=== PATIENT | male | born 1985 | race Caucasian/White ===

== ENCOUNTER 2016-12-27 17:52 | Observation (INO) | payer OTHER ==
--- NOTE | 2016-12-27 18:13 | EDPHY ---
HPI/HX/ROS/PE/MDM Narrative: CHIEF COMPLAINT: Cough, fever, recent travel HISTORY OF PRESENT ILLNESS: This patient is a 31 year old male who returned Wednesday12/25/16 from a one month trip to [facility] and [facility] complaining of cough, shortness of breath, and fever onset 2 days ago. He states he is up to date on all pertinent travel vaccinations and is followed by the travel clinic for the [facility]. He does report having bad reactions to malaria prophylaxis and did not prophylaxis against malaria. He reports he spent most of his time in [facility] and [facility], but that he also visited some surrounding towns with lush and desert climates. He states his initial symptoms were runny nose and congested sinuses starting 1 week ago but during his 32 hour return travel home, he began to feel quite unwell. He reports feeling dehydrated and nauseous, and having several episodes of fever and chills. Today, he states he was feeling better until about 3 hours ago, when he developed chills and fever again, along with shortness of breath and continuing cough. He endorses shortness of breath and pain in his ribs with deep inspiration. He endorses achiness, but denies swelling in his legs. He endorses diarrhea, but states he has IBS and does not find it unusual. He denies swimming or boating, and states he drank exclusively bottled water. He has taken Aspirin and Tylenol cold and flu for symptom relief. No palpitations, vomiting, diarrhea, urinary complaints. REVIEW OF SYSTEMS: Aside from elements discussed in the HPI, a comprehensive 10-point review of systems was reviewed and is negative. 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 Nonsmoker. Occasional alcohol use. Endorses marijuana use. VITAL SIGNS: Reviewed by me GENERAL: Well-developed, well-nourished, appears uncomfortable. HEENT: Atraumatic. Eyes: No icterus, no injection. Mouth: moist mucous membranes. No erythema or lesions. Neck: supple with no adenopathy. LUNGS: Clear to auscultation bilaterally, no wheezes, rhonchi or rales. CARDIAC: Tachycardic no rubs, murmurs or gallops. ABDOMEN: Soft, nontender, nondistended, bowel sounds normal. BACK: No CVA tenderness. EXTREMITIES: No trauma. No edema. Range of motion is normal throughout. NEURO: Alert and oriented, grossly nonfocal. SKIN: Warm and dry, no rash. PSYCHIATRIC: Normal mentation, no agitation. Portions of this note were transcribed by a medical accountant. I personally performed a history, physical exam, medical decision making, and confirmed accuracy of information the transcribed note. ED Course: 31 year old male returninng from [place] and [place] with fever and cough. Discussed with ID immediantly; no concern for ebola exposure. Placed in neg pressure room. Cough, fever, body aches; no rash, vomiting, petechia, bloody urine or epistaxis. No jaundice. Discussed possible HIV exposure while overseas; none by history. Patient reports neg HIV test 6 mo ago. 18:12 Patient does meet sepsis criteria. Plan for labs including full sepsis protocol, blood cultures, flu screen, malaria swab, UA, and blood cultures. Plan for chest x-ray. 20:[address] Gibson, radiologist. X-ray shows right lower lobe pneumonia. Severe Sepsis/Septic Shock Care NoteThe patient presents to the ED with pneumonia identified as an acute infection. The patient did have evidence of end -organ dysfunction and met criteria for severe sepsis. This condition was identified by myself at 1812. The patients vital signs are 120/77, 128, 20, 39.5, 97%. The patient has a venous lactic acid performed within 3 hours of the identification of severe sepsis which was found to be 1.7 . The patient has blood cultures drawn and received levaquin IV, per the severe sepsis treatment protocol. 20:[address] Meredith, infectious disease specialist. Suspect CAP. Malaria prep neg preliminarily. Plan for CTA to rule out pulmonary embolism due to recent prolonged travel. Confirms RLL pneumonia, no PE. Admit to hospitalist, will admit for ongoing supportive care. Patient feeling better, but still quite achy, tired, weak. MDM: Differential diagnosis for fever in adults was considered including but not limited to malaria, yellow fever, dengue fever, hemorrhagic fever, viral syndromes, pneumonia, urinary tract infection, and influenza. - Data Points Imaging Results: Imaging Impressions Chest X-Ray 12/27/16 18:12 Impression: 1. Right lower lobe pneumonia. 2. Recommend follow-up until clear. Findings and recommendations discussed with emergency department physician, Dr. Kimberly Reyna at 2005 hours on December 27, 2016. Final report concurs with initial preliminary interpretation. Chest X-Ray 12/27/16 20:15 Impression: Right lower lobe pneumonia. Imaging: Discussed imaging studies w/ weight caller Radiologist, I viewed and interpreted images myself Laboratory Results: Laboratory Results 12/27/16 18:50 12/27/16 18:50 12/27/16 12/27/16 12/27/16 20:50 18:50 18:50 WBC RBC Hgb Hct MCV MCH MCHC RDW Plt Count MPV Neut % (Auto) Lymph % (Auto) [place] % (Auto) Eos % (Auto) Baso % (Auto) Nucleat RBC Rel Count Absolute Neuts (auto) Absolute Lymphs (auto) Absolute Monos (auto) Absolute Eos (auto) Absolute Basos (auto) Absolute Nucleated RBC Immature Gran % Immature Gran # PT INR APTT D-Dimer 0.66 ug/mLFEU H ug/mLFEU (0.00-0.50) VBG Lactic Acid Sodium Potassium Chloride Carbon Dioxide Anion Gap BUN Creatinine Estimated GFR Glucose Calcium Total Bilirubin Conjugated Bilirubin Unconjugated Bilirubin AST ALT Alkaline Phosphatase Total Protein Albumin Urine Color YELLOW Urine Appearance CLEAR Urine pH 6.0 (5.0-7.5) Ur Specific [place] 1.015 (1.002-1.030) Urine Protein 1+ H (NEGATIVE) Urine Ketones 1+ H (NEGATIVE) Urine Blood NEGATIVE (NEGATIVE) Urine Nitrate NEGATIVE (NEGATIVE) Urine Bilirubin NEGATIVE (NEGATIVE) Urine Urobilinogen NEGATIVE EU EU (0.2-1.0) Ur Leukocyte Esterase NEGATIVE (NEGATIVE) Urine RBC 1-3 /hpf /hpf (0-3) Urine WBC 1-3 /hpf /hpf (0-3) Ur Epithelial Cells TRACE /lpf /lpf (NONE-1+) Urine Glucose NEGATIVE (NEGATIVE) Influenza A & B (PCR) Pending Malaria Smear Malaria Sm Path Review 12/27/16 12/27/16 12/27/16 18:50 18:50 18:50 WBC 13.12 10^3/uL H 10^3/uL (3.80-9.50) RBC 4.87 10^6/uL 10^6/uL (4.40-6.38) Hgb 15.3 g/dL g/dL (13.7-17.5) Hct 42.9 % % (40.0-51.0) MCV 88.1 fL fL (81.5-99.8) MCH 31.4 pg pg (27.9-34.1) MCHC 35.7 g/dL g/dL (32.4-36.7) RDW 12.1 % % (11.5-15.2) Plt Count 244 10^3/uL 10^3/uL (150-400) MPV 9.9 fL fL (8.7-11.7) Neut % (Auto) 91.5 % H % (39.3-74.2) Lymph % (Auto) 3.1 % L % (15.0-45.0) [place] % (Auto) 4.3 % L % (4.5-13.0) Eos % (Auto) 0.1 % L % (0.6-7.6) Baso % (Auto) 0.2 % L % (0.3-1.7) Nucleat RBC Rel Count 0.0 % % (0.0-0.2) Absolute Neuts (auto) 12.01 10^3/uL H 10^3/uL (1.70-6.50) Absolute Lymphs (auto) 0.41 10^3/uL L 10^3/uL (1.00-3.00) Absolute Monos (auto) 0.56 10^3/uL 10^3/uL (0.30-0.80) Absolute Eos (auto) 0.01 10^3/uL L 10^3/uL (0.03-0.40) Absolute Basos (auto) 0.02 10^3/uL 10^3/uL (0.02-0.10) Absolute Nucleated RBC 0.00 10^3/uL 10^3/uL (0-0.01) Immature Gran % 0.8 % % (0.0-1.1) Immature Gran # 0.11 10^3/uL H 10^3/uL (0.00-0.10) PT 14.1 SEC SEC (12.0-15.0) INR 1.10 (0.83-1.16) APTT 35.4 SEC SEC (23.0-38.0) D-Dimer VBG Lactic Acid Sodium 136 mEq/L mEq/L (134-144) Potassium 3.3 mEq/L L mEq/L (3.5-5.2) Chloride 102 mEq/L mEq/L (97-110) Carbon Dioxide 22 mEq/l mEq/l (22-31) Anion Gap 12 mEq/L mEq/L (8-16) BUN 12 mg/dL mg/dL (7-23) Creatinine 1.0 mg/dL mg/dL (0.7-1.3) Estimated GFR > 60 Glucose 102 mg/dL H mg/dL (70-100) Calcium 9.2 mg/dL mg/dL (8.5-10.4) Total Bilirubin 0.9 mg/dL mg/dL (0.1-1.4) Conjugated Bilirubin 0.5 mg/dL mg/dL (0.0-0.5) Unconjugated Bilirubin 0.4 mg/dL mg/dL (0.0-1.1) AST 19 IU/L IU/L (17-59) ALT 28 IU/L IU/L (21-72) Alkaline Phosphatase 74 IU/L IU/L (38-126) Total Protein 6.8 g/dL g/dL (6.3-8.2) Albumin 4.0 g/dL g/dL (3.5-5.0) Urine Color Urine Appearance Urine pH Ur Specific [place] Urine Protein Urine Ketones Urine Blood Urine Nitrate Urine Bilirubin Urine Urobilinogen Ur Leukocyte Esterase Urine RBC Urine WBC Ur Epithelial Cells Urine Glucose Influenza A & B (PCR) Malaria Smear Pending Malaria Sm Path Review Pending 12/27/16 18:50 WBC RBC Hgb Hct MCV MCH MCHC RDW Plt Count MPV Neut % (Auto) Lymph % (Auto) [place] % (Auto) Eos % (Auto) Baso % (Auto) Nucleat RBC Rel Count Absolute Neuts (auto) Absolute Lymphs (auto) Absolute Monos (auto) Absolute Eos (auto) Absolute Basos (auto) Absolute Nucleated RBC Immature Gran % Immature Gran # PT INR APTT D-Dimer VBG Lactic Acid 1.7 mmol/L mmol/L (0.7-2.1) Sodium Potassium Chloride Carbon Dioxide Anion Gap BUN Creatinine Estimated GFR Glucose Calcium Total Bilirubin Conjugated Bilirubin Unconjugated Bilirubin AST ALT Alkaline Phosphatase Total Protein Albumin Urine Color Urine Appearance Urine pH Ur Specific [place] Urine Protein Urine Ketones Urine Blood Urine Nitrate Urine Bilirubin Urine Urobilinogen Ur Leukocyte Esterase Urine RBC Urine WBC Ur Epithelial Cells Urine Glucose Influenza A & B (PCR) Malaria Smear Malaria Sm Path Review Medications Given: Discontinued Medications Sodium Chloride (Ns) 1,000 mls @ 0 mls/hr IV ONCE ONE PRN Reason: Wide Open Stop: 12/27/16 19:11 Last Admin: 12/27/16 19:12 Dose: 1,000 mls Sodium Chloride (Ns) 1,000 mls @ 0 mls/hr IV ONCE ONE PRN Reason: Wide Open Stop: 12/27/16 20:11 Last Admin: 12/27/16 20:11 Dose: 1,000 mls Ibuprofen (Motrin) 600 mg PO EDNOW ONE Stop: 12/27/16 21:04 Last Admin: 12/27/16 21:04 Dose: 600 mg Ondansetron HCl (Zofran) 4 mg IVP EDNOW ONE Stop: 12/27/16 19:12 Last Admin: 12/27/16 19:12 Dose: 4 mg General Time Seen by Provider: 12/27/16 18:09 Initial Vital Signs: Initial Vital Signs Temperature (C) 39.5 C H 12/27/16 17:58 Heart Rate 128 H 12/27/16 17:58 Respiratory Rate 20 12/27/16 17:58 Blood Pressure 120/77 12/27/16 17:58 O2 Sat (%) 96 12/27/16 17:58 O2 Delivery Mode Room Air Allergies/Adverse Reactions: No Known Allergies Allergy (Unverified 12/27/16 17:55) Home Medications: Medication Instructions Recorded Bupropion HCl [Wellbutrin Xl] 300 mg PO DAILY 12/27/16 Gabapentin [Neurontin 100 MG (*)] 100 - 300 mg PO HS PRN 12/27/16 Azithromycin 250 mg PO DAILY #6 tablet 12/28/16 Cefdinir [Omnicef (*)] 300 mg PO BID #12 cap 12/28/16 Departure - Departure Disposition: [facility] Acute Clinical Impression: Pneumonia, Fever Condition: Good Report Scribed for: Nieves Holguin Report Scribed by: Stacy Narayan Date of Report: 12/27/16 Time of Report: 18:12
[2016-12-27] MEDS ORDERED: ACETAMINOPHEN 500 MG TAB ONE (18:30)
[2016-12-27] MEDS ORDERED: ONDANSETRON 4 MG/2 ML VIAL ONE (18:49)
[2016-12-27] MEDS ORDERED: NS 1,000 ML IV ONE ×2 (19:10→20:10)
[2016-12-27] MEDS ORDERED: ONDANSETRON 4 MG/2 ML VIAL IVP ONE (19:11)
[2016-12-27 19:15] LABS: % IMMATURE GRANULYOCYTES 0.8 % (0.0-1.1); ABSOLUTE IMMATURE GRANULOCYTES 0.11 10^3/uL (0.00-0.10); ADD DIFF? NO; ADD MORPH? NO; ADD SCAN? NO; ATYPICAL LYMPHOCYTE FLAG 0 (0-99); FRAGMENT RBC FLAG 0 (0-99); HEMATOCRIT 42.9 % (40.0-51.0); HEMOGLOBIN 15.3 g/dL (13.7-17.5); LEFT SHIFT FLG 50 (0-99); LIPEMIA HEMOLYSIS FLAG 90 (0-99); MEAN CELL HEMOGLOBIN 31.4 pg (27.9-34.1); MEAN CELL HEMOGLOBIN CONCENTR. 35.7 g/dL (32.4-36.7); MEAN CELL VOLUME 88.1 fL (81.5-99.8); MEAN PLATELET VOLUME 9.9 fL (8.7-11.7); PLATELET CLUMPS FLAG 20 (0-99); PLATELET COUNT 244 10^3/uL (150-400); RED BLOOD CELL COUNT 4.87 10^6/uL (4.40-6.38); RED CELL DISTRIBUTION WIDTH 12.1 % (11.5-15.2)
[2016-12-27 19:19] LABS: COLOR YELLOW; LEUKOCYTE ESTERASE,URINE NEGATIVE (NEGATIVE); NITRITE,URINE NEGATIVE (NEGATIVE)
[2016-12-27 19:24] LABS: INR 1.1 (0.83-1.16); PROTIME(PATIENT) 14.1 SEC (12.0-15.0)
[2016-12-27 19:25] LABS: APTT 35.4 SEC (23.0-38.0)
[2016-12-27 19:31] LABS: ALANINE AMINOTRANSFERASE 28 IU/L (21-72); ALKALINE PHOSPHATASE 74 IU/L (38-126); ANION GAP 12 mEq/L (8-16); ASPARTATE AMINOTRANSFERASE 19 IU/L (17-59); BILIRUBIN,TOTAL 0.9 mg/dL (0.1-1.4); BILIRUBIN-CONJUGATED 0.5 mg/dL (0.0-0.5); BILIRUBIN-UNCONJUGATED 0.4 mg/dL (0.0-1.1); CALCIUM 9.2 mg/dL (8.5-10.4); CARBON DIOXIDE 22 mEq/l (22-31); CHLORIDE 102 mEq/L (97-110); GLOMERULAR FILTRATION RATE > 60; GLUCOSE 102 mg/dL (70-100); POTASSIUM 3.3 mEq/L (3.5-5.2); SODIUM 136 mEq/L (134-144); TOTAL PROTEIN 6.8 g/dL (6.3-8.2)
[2016-12-27] MEDS ORDERED: IBUPROFEN 600 MG TAB PO ONE ×2 (20:03→21:03)
[2016-12-27] MEDS ORDERED: IOPAMIDOL (ISOVUE 370) 100 ML BTL IV ONE (20:37)
[2016-12-27 21:05] LABS: MALARIAL PREP NONE SEEN (NONE SEEN)
[2016-12-27] MEDS ORDERED: ONDANSETRON 4 MG/2 ML VIAL IVP PRN (22:22)
[2016-12-27] MEDS ORDERED: ONDANSETRON DISINTEGRATING 4 MG TAB PO PRN (22:22)
[2016-12-27] MEDS ORDERED: IBUPROFEN 600 MG TAB PO PRN (22:22)
[2016-12-27] MEDS ORDERED: ACETAMINOPHEN 325 MG TAB PO PRN (22:22)
[2016-12-27] MEDS ORDERED: ALBUTEROL 3 ML DEYVIAL IH PRN (22:22)
[2016-12-27] MEDS ORDERED: GABAPENTIN 100 MG CAP PO PRN (22:26)
--- NOTE | 2016-12-27 22:37 | PDGENHP ---
History and Physical - Chief Complaint fever, cough - History of Present Illness 31 yo male with h/o IBS, who recently returned from [facility] and has developed fever, chills, cough and SOB. He developed a runny nose and sinus congestion approximately 7-10 days prior to departing [place]. He felt a little better, but after 32 hrs of air travel and little oral intake, he developed fevers, chills, rigors, productive cough, right rib/chest pain and SOB. He also endorses myalgias and intermittent diarrhea. He is unsure when his last formed stool was. 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 He did not take malaria prophylaxis due to untoward side effects. He started treatment dose malaria yesterday when his symptoms worsened. In the ED, an initial malaria smear is reportedly negative. He is found to have a RLL PNA on CXR and CT scan and is admitted to the hospital for further management. History Information - Allergies/Home Medication List Allergies/Adverse Reactions: No Known Allergies Allergy (Unverified 12/27/16 17:55) Home Medications: Atovaquone/Proguanil HCl [Malarone 250/100 mg Tab (*)] 4 tab PO AD 12/27/16 [ Last Taken 12/27/16 4 TABS] Bupropion HCl [Wellbutrin Xl] 300 mg PO DAILY 12/27/16 [Last Taken Unknown] Gabapentin [Neurontin 100 MG (*)] 100 - 300 mg PO HS PRN 12/27/16 [Last Taken Unknown] I have personally reviewed and updated: family history, medical history, social history, surgical history - Past Medical History Additional medical history: IBS - Surgical History Additional surgical history: tympanoplasty - Family History Positive for: hypertension - Social History Smoking Status: Current some day smoker Alcohol Use: Occasionally Drug Use: Marijuana Additional social history: Works for [employer] and 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 Review of Systems ROS: 10pt was reviewed & negative except for what was stated in HPI & below Physical Exam Temp Pulse Resp BP Pulse Ox 37.7 C 112 H 18 118/72 97 12/27/16 20:09 12/27/16 20:09 12/27/16 20:09 12/27/16 20:09 12/27/16 20:09 Constitutional: no apparent distress Eyes: PERRL Ears, Nose, Mouth, Throat: moist mucous membranes Cardiovascular: regular rate and rhythym, no murmur, rub, or gallop Respiratory: no respiratory distress, other (RLL crackles) Gastrointestinal: normoactive bowel sounds, soft, non-tender abdomen Skin: warm Musculoskeletal: full muscle strength, other (no peripheral edema) Neurologic: AAOx3 Psychiatric: interacting appropriately Lab Data & Imaging Review 12/27/16 18:50 12/27/16 18:50 WBC 13.12 10^3/uL (3.80-9.50) H 12/27/16 18:50 RBC 4.87 10^6/uL (4.40-6.38) 12/27/16 18:50 Hgb 15.3 g/dL (13.7-17.5) 12/27/16 18:50 Hct 42.9 % (40.0-51.0) 12/27/16 18:50 MCV 88.1 fL (81.5-99.8) 12/27/16 18:50 MCH 31.4 pg (27.9-34.1) 12/27/16 18:50 MCHC 35.7 g/dL (32.4-36.7) 12/27/16 18:50 RDW 12.1 % (11.5-15.2) 12/27/16 18:50 Plt Count 244 10^3/uL (150-400) 12/27/16 18:50 MPV 9.9 fL (8.7-11.7) 12/27/16 18:50 Neut % (Auto) 91.5 % (39.3-74.2) H 12/27/16 18:50 Lymph % (Auto) 3.1 % (15.0-45.0) L 12/27/16 18:50 [place] % (Auto) 4.3 % (4.5-13.0) L 12/27/16 18:50 Eos % (Auto) 0.1 % (0.6-7.6) L 12/27/16 18:50 Baso % (Auto) 0.2 % (0.3-1.7) L 12/27/16 18:50 Nucleat RBC Rel Count 0.0 % (0.0-0.2) 12/27/16 18:50 Absolute Neuts (auto) 12.01 10^3/uL (1.70-6.50) H 12/27/16 18:50 Absolute Lymphs (auto) 0.41 10^3/uL (1.00-3.00) L 12/27/16 18:50 Absolute Monos (auto) 0.56 10^3/uL (0.30-0.80) 12/27/16 18:50 Absolute Eos (auto) 0.01 10^3/uL (0.03-0.40) L 12/27/16 18:50 Absolute Basos (auto) 0.02 10^3/uL (0.02-0.10) 12/27/16 18:50 Absolute Nucleated RBC 0.00 10^3/uL (0-0.01) 12/27/16 18:50 Immature Gran % 0.8 % (0.0-1.1) 12/27/16 18:50 Immature Gran # 0.11 10^3/uL (0.00-0.10) H 12/27/16 18:50 PT 14.1 SEC (12.0-15.0) 12/27/16 18:50 INR 1.10 (0.83-1.16) 12/27/16 18:50 APTT 35.4 SEC (23.0-38.0) 12/27/16 18:50 D-Dimer 0.66 ug/mLFEU (0.00-0.50) H 12/27/16 18:50 VBG Lactic Acid 1.7 mmol/L (0.7-2.1) 12/27/16 18:50 Sodium 136 mEq/L (134-144) 12/27/16 18:50 Potassium 3.3 mEq/L (3.5-5.2) L 12/27/16 18:50 Chloride 102 mEq/L (97-110) 12/27/16 18:50 Carbon Dioxide 22 mEq/l (22-31) 12/27/16 18:50 Anion Gap 12 mEq/L (8-16) 12/27/16 18:50 BUN 12 mg/dL (7-23) 12/27/16 18:50 Creatinine 1.0 mg/dL (0.7-1.3) 12/27/16 18:50 Estimated GFR > 60 12/27/16 18:50 Glucose 102 mg/dL (70-100) H 12/27/16 18:50 Calcium 9.2 mg/dL (8.5-10.4) 12/27/16 18:50 Total Bilirubin 0.9 mg/dL (0.1-1.4) 12/27/16 18:50 Conjugated Bilirubin 0.5 mg/dL (0.0-0.5) 12/27/16 18:50 Unconjugated Bilirubin 0.4 mg/dL (0.0-1.1) 12/27/16 18:50 AST 19 IU/L (17-59) 12/27/16 18:50 ALT 28 IU/L (21-72) 12/27/16 18:50 Alkaline Phosphatase 74 IU/L (38-126) 12/27/16 18:50 Total Protein 6.8 g/dL (6.3-8.2) 12/27/16 18:50 Albumin 4.0 g/dL (3.5-5.0) 12/27/16 18:50 Urine Color YELLOW 12/27/16 18:50 Urine Appearance CLEAR 12/27/16 18:50 Urine pH 6.0 (5.0-7.5) 12/27/16 18:50 Ur Specific [place] 1.015 (1.002-1.030) 12/27/16 18:50 Urine Protein 1+ (NEGATIVE) H 12/27/16 18:50 Urine Ketones 1+ (NEGATIVE) H 12/27/16 18:50 Urine Blood NEGATIVE (NEGATIVE) 12/27/16 18:50 Urine Nitrate NEGATIVE (NEGATIVE) 12/27/16 18:50 Urine Bilirubin NEGATIVE (NEGATIVE) 12/27/16 18:50 Urine Urobilinogen NEGATIVE EU (0.2-1.0) 12/27/16 18:50 Ur Leukocyte Esterase NEGATIVE (NEGATIVE) 12/27/16 18:50 Urine RBC 1-3 /hpf (0-3) 12/27/16 18:50 Urine WBC 1-3 /hpf (0-3) 12/27/16 18:50 Ur Epithelial Cells TRACE /lpf (NONE-1+) 12/27/16 18:50 Urine Glucose NEGATIVE (NEGATIVE) 12/27/16 18:50 Influenza A & B (PCR) NEGATIVE FOR FLU (NEGATIVE) 12/27/16 20:50 Visualized and Interpreted Chest x-ray results: Yes Chest X-Ray results: infiltrate Visualized and Interpreted imaging results: Yes Interpretation: RLL PNA seen on CT Assessment & Plan Assessment: Sepsis secondary to Community Acquired Pneumonia - RLL PNA on CXR and CT without associated effusion. No hypoxemia. He presents with fever, leukocytosis and tachycardia. Lactate normal. No e/o end organ damage. BCx's pending. -Cont IV Levaquin -Send sputum Cx -check urinary legionella and pneumococcal Ags -Supportive care Fever - likely secondary to above, but given recent travel in malaria endemic regions of [place], consider malaria. Initial smear reported negative. -repeat malaria smear x2 for total of 3 neg smears -cont malarone at pplx dose for 7 days post-exposure, through 01/01. IBS - diarrhea present on admission. -send GI pathogen panel. Full code DVT PPLX - Low risk. SCD's for now. Change to Lovenox if prolonged hospitalization. Dispo - Observation
[2016-12-28] MEDS: NS W/ 20 KCl/L 1,000 ML IV SCH ×2 (00:32→08:23)
[2016-12-28 03:22] LABS: % IMMATURE GRANULYOCYTES 0.5 % (0.0-1.1); ABSOLUTE IMMATURE GRANULOCYTES 0.06 10^3/uL (0.00-0.10); ADD DIFF? NO; ADD MORPH? NO; ADD SCAN? NO; ATYPICAL LYMPHOCYTE FLAG 30 (0-99); FRAGMENT RBC FLAG 0 (0-99); HEMATOCRIT 35.5 % (40.0-51.0); HEMOGLOBIN 12.5 g/dL (13.7-17.5); LEFT SHIFT FLG 30 (0-99); LIPEMIA HEMOLYSIS FLAG 90 (0-99); MEAN CELL HEMOGLOBIN 31.2 pg (27.9-34.1); MEAN CELL HEMOGLOBIN CONCENTR. 35.2 g/dL (32.4-36.7); MEAN CELL VOLUME 88.5 fL (81.5-99.8); MEAN PLATELET VOLUME 9.1 fL (8.7-11.7); PLATELET CLUMPS FLAG 0 (0-99); PLATELET COUNT 185 10^3/uL (150-400); RED BLOOD CELL COUNT 4.01 10^6/uL (4.40-6.38); RED CELL DISTRIBUTION WIDTH 12.3 % (11.5-15.2)
[2016-12-28 03:45] LABS: ANION GAP 8 mEq/L (8-16); CALCIUM 7.7 mg/dL (8.5-10.4); CARBON DIOXIDE 22 mEq/l (22-31); CHLORIDE 108 mEq/L (97-110); CREATININE 0.9 mg/dL (0.7-1.3); GLOMERULAR FILTRATION RATE > 60; GLUCOSE 91 mg/dL (70-100); SODIUM 138 mEq/L (134-144)
[2016-12-28 03:51] VITALS: PULSE 84
[2016-12-28 05:09] LABS: MALARIAL PREP NONE SEEN (NONE SEEN)
[2016-12-28 08:18] VITALS: BP 124/83; RESP 16; TEMP 99; O2SAT 96
[2016-12-28] MEDS ORDERED: buPROPion XL 150 MG TAB PO SCH (09:00)
[2016-12-28] MEDS ORDERED: MALARONE 250/100 MG TAB PO SCH ×2 (09:00)
--- NOTE | 2016-12-28 10:47 | GDS ---
[f rep st] DISCHARGE SUMMARY DISCHARGE DIAGNOSES: 1. Community-acquired right lower lobe pneumonia. 2. Recent travel with no evidence of malaria. HISTORY: This is a 31-year-old male, who just recently came back from [place]. He had a cold before leaving, which just got better, and then he had a long uncomfortable flight back with little sleep and little hydration. He then developed cough, pleuritic chest pain, and fevers. CT scan of the est shows a right lower lobe pneumonia. HOSPITAL COURSE: Patient admitted and given antibiotics. He did have initial malaria screen that w as negative. He really does not exhibit symptoms of malaria. His symptoms are confidently attribut ed to pneumonia. The case was discussed with Infectious Disease, who did not feel he needed malaria prophylaxis. However, we did add an HIV test. This is still pending at this time. He will be dis charged on antibiotics. He is not hypoxic and is eating well. DISPOSITION: Home. DISCHARGE MEDICATIONS: Omnicef and azithromycin. FOLLOWUP INSTRUCTIONS: He is to follow up with his primary care doctor if needed. /[id number]/MODL
== END 2016-12-28 11:13 | disposition home or self-care (01) ==
LOC: F2W 23:34
PROVIDERS: ADMIT Internal Medicine; ATTEND Internal Medicine
DX: J18.8 Other pneumonia, unspecified organism (principal); Z72.0 Tobacco use
CPT/HCPCS: 71010; 71275; G0378; 87449-90; 96374; J1956; J2405; Q9967